=== PATIENT | female | born 1995 | race American Indian/Alaskan Native ===

== ENCOUNTER 2017-03-18 07:48 | Emergency (ER) | payer OTHER ==
[2017-03-18 08:25] LABS: Bacteria,Urine 1+ /HPF (Negative); Bilirubin,Urine NEG (Negative); Blood,Urine MOD (Negative); Ketones,Urine NEG (Negative); Leukocyte Esterase,Urine SM (Negative); Mucus,Urine 2+ /HPF; Nitrite,Urine NEG (Negative); Protein,Urine <15 mg/dL mg/dL (Negative); Urobilinogen,Urine < 2.0 mg/dL (<2.0)
[2017-03-18] MEDS ORDERED: NACL 0.9% 1000 ML 1,000 ML IV ONE ×2 (08:28→10:40)
[2017-03-18 08:34] LABS: Basophils % (Auto) 0.6 % (0.0-1.8); Eosinophils % (Auto) 1.2 % (0.0-4.3); Hemoglobin 13.4 gm/dl (10.1-14.3); Mean Corpuscular HGB Conc 32 % (30-34); Mean Corpuscular Volume 79 fl (79-97); Platelet Count 330 K/mm3 (140-440); Red Blood Count 5.32 M/mm3 (3.65-5.03); White Blood Count 9.9 K/mm3 (4.5-11.0)
[2017-03-18 08:56] LABS: Anion Gap 19 mmol/L; BUN/Creatinine Ratio 16.66; Blood Urea Nitrogen 10 mg/dL (7-17); Calcium 9.7 mg/dL (8.4-10.2); Carbon Dioxide 23 mmol/L (22-30); Chloride 104.5 mmol/L (98-107); Glucose 96 mg/dL (65-100); Potassium 4.1 mmol/L (3.6-5.0); Sodium 142 mmol/L (137-145)
[2017-03-18] MEDS ORDERED: TORADOL IV ONE (09:15)
[2017-03-18 09:19] LABS: Mean Corpuscular Hemoglobin 25 pg (28-32)
--- NOTE | 2017-03-18 09:28 | Emergency Department Report ---
ED Abdominal Pain HPI - General Chief Complaint: Abdominal Pain Stated Complaint: L FLANK PAIN/HISTORY OF KIDNEY STONES Time Seen by Provider: 03/18/17 08:52 Source: patient Mode of arrival: Ambulatory Limitations: No Limitations - History of Present Illness Initial Comments: This is a 21-year-old female well-nourished with nontoxic or ill in appearance that presents with left-sided flank pain 1 day. Patient stated she has history of kidney stones that is unrelieved with [id number] medication. Patient states has a hcc coders but due to move patient does not follow-up with a hcc coders x6 months. Patient has a history of chronic kidney stones that she is usually admitted for because patient does not excrete the kidney stones by herself. Basically last episode of severe kidney stone was in July 2016. Patient stated she was admitted that time. Patient denies any fever, chills, nausea, vomiting, abdominal pain, stiff neck, headache, chest pain, shortness of breath, blurry vision. Patient describes left-sided flank pain as aching with a level of 7 out of 10. Patient has hematuria. Denies dysuria or polyuria. Denies discharge. Denies any allergies. History of asthma and kidney stones. MD Complaint: flank pain (left) -: Gradual, days(s) (1) Radiation: none Migration to: no migration Severity: moderate Severity scale (0 -10): 7 Quality: aching Consistency: constant Improves With: nothing Worsens With: nothing Associated Symptoms: denies other symptoms. denies: nausea, vomiting, diarrhea , fever, chills, constipation, dysuria, hematemesis, hematochezia, melena, hematuria, anorexia, syncope - Related Data Previous Rx's Medication Instructions Recorded Last Taken Type Ibuprofen [Motrin] 800 mg PO Q8HR PRN #60 tablet 05/23/15 Unknown Rx Sulfamethoxazole/Trimethoprim 1 each PO BID #20 tablet 05/23/15 Unknown Rx [Bactrim DS TAB] traMADol [Ultram] 50 mg PO Q6HR PRN #20 tablet 05/23/15 Unknown Rx Ibuprofen [Motrin 600 MG tab] 600 mg PO Q8H PRN #15 tablet 03/18/17 Unknown Rx Allergies Allergy/AdvReac Type Severity Reaction Status Date / Time cat dander Allergy Itching Verified 03/18/17 10:10 dog dander Allergy Itching Verified 03/18/17 10:10 pineapple Allergy Hives Verified 03/18/17 10:10 tomato Allergy Hives Verified 03/18/17 10:10 pepper AdvReac Nausea Verified 03/18/17 10:10 ED Review of Systems ROS: Stated complaint: L FLANK PAIN/HISTORY OF KIDNEY STONES Other details as noted in HPI Constitutional: denies: chills, fever Eyes: denies: eye pain, eye discharge, vision change ENT: denies: ear pain, throat pain Respiratory: denies: cough, shortness of breath, wheezing Cardiovascular: denies: chest pain, palpitations Endocrine: no symptoms reported Gastrointestinal: denies: abdominal pain, nausea, vomiting, diarrhea, constipation, hematemesis, melena, hematochezia Genitourinary: denies: urgency, dysuria, discharge Musculoskeletal: denies: back pain, joint swelling, arthralgia Skin: denies: rash, lesions Neurological: denies: headache, weakness, paresthesias Psychiatric: denies: anxiety, depression Hematological/Lymphatic: denies: easy bleeding, easy bruising ED Past Medical Hx - Past Medical History Hx Kidney Stones: Yes Hx Asthma: Yes Additional medical history: KIDNEY infection,back problem,stomach ulcer - Surgical History Additional Surgical History: gastro surgery - Social History Smoking Status: Former Smoker Substance Use Type: None - Medications Home Medications: Home Medications Medication Instructions Recorded Confirmed Last Taken Type Ibuprofen [Motrin] 800 mg PO Q8HR PRN #60 tablet 05/23/15 Unknown Rx Sulfamethoxazole/Trimethoprim 1 each PO BID #20 tablet 05/23/15 Unknown Rx [Bactrim DS TAB] traMADol [Ultram] 50 mg PO Q6HR PRN #20 tablet 05/23/15 Unknown Rx Ibuprofen [Motrin 600 MG tab] 600 mg PO Q8H PRN #15 tablet 03/18/17 Unknown Rx ED Physical Exam - General Limitations: No Limitations General appearance: alert, in no apparent distress - Head Head exam: Present: atraumatic, normocephalic, normal inspection - Eye Eye exam: Present: normal appearance, PERRL, EOMI. Absent: scleral icterus, conjunctival injection, nystagmus, periorbital swelling, periorbital tenderness Pupils: Present: normal accommodation - ENT ENT exam: Present: normal exam, normal orophraynx, mucous membranes moist, TM's normal bilaterally, normal external ear exam - Neck Neck exam: Present: normal inspection, full ROM. Absent: tenderness, meningismus, lymphadenopathy, thyromegaly - Respiratory Respiratory exam: Present: normal lung sounds bilaterally. Absent: respiratory distress, wheezes, rales, rhonchi, stridor, chest wall tenderness, accessory muscle use, decreased breath sounds, prolonged expiratory - Cardiovascular Cardiovascular Exam: Present: regular rate, normal rhythm, normal heart sounds. Absent: bradycardia, tachycardia, irregular rhythm, systolic murmur, diastolic murmur, rubs, gallop - GI/Abdominal GI/Abdominal exam: Present: soft, normal bowel sounds. Absent: distended, tenderness, guarding, rebound, rigid, diminished bowel sounds, hyperactive bowel sounds, hypoactive bowel sounds, organomegaly, mass, bruit, pulsatile mass , hernia - Expanded GI/Abdominal Exam Expanded GI/Abdominal exam: Absent: psoas sign, obturator sign, heel tap sign, Alvarenga's sign, Rovsing's sign, tenderness at [place]bur[place]'s Point, ascites - Rectal Rectal exam: Present: deferred - Extremities Exam Extremities exam: Present: normal inspection, full ROM, normal capillary refill. Absent: tenderness, pedal edema, joint swelling, calf tenderness - Back Exam Back exam: Present: normal inspection, full ROM, tenderness, CVA tenderness (L) . Absent: CVA tenderness (R), muscle spasm, paraspinal tenderness, vertebral tenderness, rash noted - Neurological Exam Neurological exam: Present: alert, oriented X3, CN II-XII intact, normal gait - Psychiatric Psychiatric exam: Present: normal affect, normal mood. Absent: depressed, agitated - Skin Skin exam: Present: warm, dry, intact, normal color. Absent: rash ED Course Vital Signs 03/18/17 03/18/17 03/18/17 07:54 09:32 09:50 Temperature 98.1 F Pulse Rate 94 H Respiratory 20 20 22 Rate Blood Pressure 117/97 O2 Sat by Pulse 100 Oximetry 03/18/17 03/18/17 09:57 10:27 Temperature Pulse Rate Respiratory 22 18 Rate Blood Pressure O2 Sat by Pulse Oximetry - Reevaluation(s) Reevaluation #1: 03/18/17 09:28 Patient is laying in bed on right sided with stating pain. No signs of distress noted,. - Consultations Consultation #1: 03/18/17 11:12 Dr. Borden has been consulted about patient and lab/ct findings. Agrees to d/c plan of care. ED Medical Decision Making - Lab Data Result diagrams: 03/18/17 08:08 03/18/17 08:08 - Medical Decision Making Ed course: This is a 21-year-old female that presents with bilateral nephrolithiasis, nonobstructing. 1- Patient has been examiend by myself. A CT scan has been obtained and dictacted by Dr. Thacker. Impression: Bilateral nephrolithiasis with nonobstructing. Largest stone is 3mm in the inferior right kidney. Patient has been notified of CT findings. 2- Dr. Borden has been consulted about patient and agrees to d/c. 3- patient received normal saline bolus in the ED as well as Toradol and morphine. Patient stated pain has subsided to 2/10. Patient stated that girlfriend (Maria D) will drive patient home. I instructed patient not to operate heavy machinery, discharged due to possibility of drowsiness/sedation morphine in ED. patient agrees to plan of care and discharge as stated Maria D will drive the patient home. 4- patient received ibuprofen 800 mg by mouth at the time of discharge. 5. Patient was also instructed to follow-up with her primary care doctor in 3- 5 days or if symptoms worsen and unbearable return to emergency room as was possible.- 6- at time time of discharge, the patient does not seem toxic or ill in appearance. No acute signs of distress noted. Patient agrees to discharge treatment plan of care. No further questions noted by the patient. Critical care attestation.: If time is entered above; I have spent that time in minutes in the direct care of this critically ill patient, excluding procedure time. ED Disposition Clinical Impression: Nephrolithiasis Disposition: DC-01 TO HOME OR SELFCARE Is pt being admited?: No Does the pt Need Aspirin: No Condition: Stable Instructions: Kidney Stones (ED), Ibuprofen (By mouth) Additional Instructions: Follow-up with her primary care doctor in 3-5 days or if symptoms worsen/ unbearable and unable to urinate return back to emergency room as soon as possible. Take ibuprofen as prescribed as needed for pain. Prescriptions: Ibuprofen [Motrin 600 MG tab] 600 mg PO Q8H PRN #15 tablet PRN Reason: Pain Referrals: PRIMARY CARE, [Primary Care Provider] - 3-5 Days STEVIE MIRZA JR, MD [Staff Physician] - 3-5 Days [facility] [Outside] - 3-5 Days [facility] [Outside] - 3-5 Days Forms: Work/School Release Form(ED)
[2017-03-18] MEDS ORDERED: ZOFRAN IV ONE (09:54)
[2017-03-18] MEDS ORDERED: MORPHINE IV ONE (09:54)
[2017-03-18 10:28] LABS: Alanine Aminotransferase 11 units/L (7-56); Albumin 4.7 g/dL (3.9-5); Alkaline Phosphatase 74 units/L (35-129); Amylase 67 units/L (27-131); Lipase 34 units/L (13-60)
--- NOTE | 2017-03-18 10:31 | Cat Scan Report ---
CT OF THE ABDOMEN AND PELVIS WITHOUT CONTRAST HISTORY: Flank pain. TECHNIQUE: Helical CT without contrast. Sagittal and coronal reformatted images. FINDINGS: No comparison. There are multiple bilateral nonobstructing renal calyceal stones. The largest stone measures 3 mm in the inferior right kidney. No ureteral stones or hydronephrosis is appreciated. No focal renal lesion. The bladder is unremarkable. Within the limits of a noncontrast exam, the abdominal and pelvic viscera are within normal limits. The liver, biliary system, pancreas, spleen, and adrenal glands are unremarkable. The bowel loops are normal caliber and wall thickness. Normal appendix. 1 cm appendicolith is noted in the distal tip of the appendix but no inflammatory changes. The aorta is normal caliber. No ascites, bulky adenopathy or inflammatory changes. The uterus and adnexa are unremarkable. The lung bases are clear. Normal heart size. No suspicious bony lesion. IMPRESSION: Bilateral nephrolithiasis, nonobstructing.
[2017-03-18 10:32] LABS: Bilirubin,Direct < 0.2 mg/dL (0-0.2)
[2017-03-18 10:39] LABS: Albumin/Globulin Ratio 1.6 %; Total Protein 7.7 g/dL (6.3-8.2)
[2017-03-18 11:41] VITALS: BP 124/78
== END 2017-03-18 11:40 | disposition home or self-care (01) ==
LOC: ED 07:48
DX: N20.0 Calculus of kidney (principal); J45.909 Unspecified asthma, uncomplicated; Z87.891 Personal history of nicotine dependence
CPT/HCPCS: 36415; 74176; 80048; 80074; 81001; 82150; 83690; 84702; 84703; 85025; 96361; 96374; 96375; 99284; J1885; J2270; J2405; J7030

== ENCOUNTER 2017-04-11 21:50 | Emergency (ER) | payer OTHER ==
[2017-04-11 22:30] VITALS: BP 126/76
[2017-04-11 22:50] LABS: Basophils % (Auto) 0.7 % (0.0-1.8); Eosinophils % (Auto) 2.6 % (0.0-4.3); Hematocrit 42.3 % (30.3-42.9); Hemoglobin 14.1 gm/dl (10.1-14.3); Mean Corpuscular HGB Conc 33 % (30-34); Mean Corpuscular Hemoglobin 26 pg (28-32); Mean Corpuscular Volume 79 fl (79-97); Platelet Count 332 K/mm3 (140-440); Red Blood Count 5.36 M/mm3 (3.65-5.03); Red Cell Distribution Width 14.1 % (13.2-15.2); White Blood Count 8.5 K/mm3 (4.5-11.0)
[2017-04-11 23:19] LABS: Anion Gap 22 mmol/L; BUN/Creatinine Ratio 18.33; Blood Urea Nitrogen 11 mg/dL (7-17); Calcium 9.8 mg/dL (8.4-10.2); Carbon Dioxide 17 mmol/L (22-30); Chloride 104.9 mmol/L (98-107); Glucose 129 mg/dL (65-100); Potassium 4.1 mmol/L (3.6-5.0); Sodium 140 mmol/L (137-145)
[2017-04-11 23:54] LABS: Bacteria,Urine 1+ /HPF (Negative); Bilirubin,Urine NEG (Negative); Blood,Urine NEG (Negative); Ketones,Urine NEG (Negative); Leukocyte Esterase,Urine NEG (Negative); Mucus,Urine 1+ /HPF; Nitrite,Urine NEG (Negative); Protein,Urine <15 mg/dL mg/dL (Negative); Urobilinogen,Urine < 2.0 mg/dL (<2.0)
--- NOTE | 2017-04-13 14:34 | ED Elopement Review ---
ED Pt Elopement review - Results review Lab results: Laboratory Tests 04/11/17 04/11/17 04/11/17 22:32 22:33 22:33 WBC 8.5 RBC 5.36 H Hgb 14.1 Hct 42.3 MCV 79 MCH 26 L MCHC 33 RDW 14.1 Plt Count 332 Lymph % (Auto) 32.9 [place] % (Auto) 9.7 H Eos % (Auto) 2.6 Baso % (Auto) 0.7 Lymph # 2.8 [place] # 0.8 Eos # 0.2 Baso # 0.1 Seg Neutrophils % 54.1 Seg Neutrophils # 4.6 Sodium 140 Potassium 4.1 Chloride 104.9 Carbon Dioxide 17 L Anion Gap 22 BUN 11 Creatinine 0.6 L Estimated GFR > 60 BUN/Creatinine Ratio 18.33 Glucose 129 H Calcium 9.8 HCG, Qual Negative Urine Color Urine Turbidity Urine pH Ur Specific [place] Urine Protein Urine Glucose (UA) Urine Ketones Urine Blood Urine Nitrite Urine Bilirubin Urine Urobilinogen Ur Leukocyte Esterase Urine WBC (Auto) Urine RBC (Auto) U Epithel Cells (Auto) Urine Bacteria (Auto) Calcium Oxalate Crystal Urine Mucus 04/11/17 22:44 WBC RBC Hgb Hct MCV MCH MCHC RDW Plt Count Lymph % (Auto) [place] % (Auto) Eos % (Auto) Baso % (Auto) Lymph # [place] # Eos # Baso # Seg Neutrophils % Seg Neutrophils # Sodium Potassium Chloride Carbon Dioxide Anion Gap BUN Creatinine Estimated GFR BUN/Creatinine Ratio Glucose Calcium HCG, Qual Urine Color Yellow Urine Turbidity Clear Urine pH 5.0 Ur Specific [place] 1.020 Urine Protein <15 mg/dl Urine Glucose (UA) Neg Urine Ketones Neg Urine Blood Neg Urine Nitrite Neg Urine Bilirubin Neg Urine Urobilinogen < 2.0 Ur Leukocyte Esterase Neg Urine WBC (Auto) 2.0 Urine RBC (Auto) 3.0 U Epithel Cells (Auto) 7.0 Urine Bacteria (Auto) 1+ Calcium Oxalate Crystal Few Urine Mucus 1+ - Call Back decision Pt Call Back Decision: Pt to F/U with PMD
== END 2017-04-12 02:00 | disposition left against medical advice (07) ==
LOC: ED 21:50
DX: R07.9 Chest pain, unspecified (principal); R10.9 Unspecified abdominal pain; R11.2 Nausea with vomiting, unspecified; Z53.21 Procedure and treatment not carried out due to patient leaving prior to being seen by health care provider
CPT/HCPCS: 36415; 80048; 81001; 84703; 85025; 93005; 93010

== ENCOUNTER 2017-05-01 00:20 | Emergency (ER) | payer OTHER ==
[2017-05-01 03:13] LABS: Bacteria,Urine 1+ /HPF (Negative); Bilirubin,Urine NEG (Negative); Blood,Urine LG (Negative); Ketones,Urine NEG (Negative); Leukocyte Esterase,Urine TR (Negative); Mucus,Urine 3+ /HPF; Nitrite,Urine NEG (Negative); Urobilinogen,Urine < 2.0 mg/dL (<2.0)
[2017-05-01] MEDS ORDERED: TYLENOL ONE (03:58)
[2017-05-01] MEDS ORDERED: TYLENOL PO ONE ×2 (03:59→08:42)
[2017-05-01] MEDS ORDERED: TORADOL IV ONE (07:28)
[2017-05-01] MEDS ORDERED: DILAUDID IV ONE (07:28)
[2017-05-01] MEDS ORDERED: ZOFRAN IV ONE (07:28)
--- NOTE | 2017-05-01 07:29 | Emergency Department Report ---
ED General Adult HPI - General Chief complaint: BP Check / Ring removal req Stated complaint: RT BACK PAIN/BLOOD IN URINE Time Seen by Provider: 05/01/17 07:22 Source: patient, RN notes reviewed, old records reviewed Mode of arrival: Ambulatory Limitations: No Limitations - History of Present Illness Initial comments: This is a 21-year-old female. She is previously known to me. She reports her urology specialist is Dr. Miramontes. She reports a history of multiple kidney stones. Patient was seen in this emergency department on 03/18/2017 for presumed symptomatic nephrolithiasis. She had a noncontrast CT scan of the abdomen and pelvis at that time, which demonstrated bilateral nephrolithiasis with nonobstructing stones. The largest stone was found to be 3 mm in the inferior right kidney. The patient presents to the ER today with right flank pain that she feels is similar to prior episodes of nephrolithiasis. She also describes hematuria. She denies fevers, chills, chest pain, shortness of breath, irritative and obstructive urinary symptoms. There is no leg pain or leg swelling. No recent trips greater than 4 hours. No recent hospital admissions. Patient does not take control tablets. -: Gradual Location: back Radiation: flank Severity scale (0 -10): 10 Quality: aching Consistency: constant Improves with: medication Worsens with: movement Associated Symptoms: denies: confusion, chest pain, cough, diaphoresis, fever/ chills, headaches, loss of appetite, malaise, nausea/vomiting, shortness of breath, syncope, weakness - Related Data Previous Rx's Medication Instructions Recorded Last Taken Type Ibuprofen [Motrin] 800 mg PO Q8HR PRN #60 tablet 05/23/15 Unknown Rx Sulfamethoxazole/Trimethoprim 1 each PO BID #20 tablet 05/23/15 Unknown Rx [Bactrim DS TAB] traMADol [Ultram] 50 mg PO Q6HR PRN #20 tablet 05/23/15 Unknown Rx Ibuprofen [Motrin 600 MG tab] 600 mg PO Q8H PRN #15 tablet 03/18/17 Unknown Rx Ketorolac [Toradol] 10 mg PO Q6H PRN #20 tablet 05/01/17 Unknown Rx Ondansetron [Zofran Odt] 4 mg PO QID PRN #20 tab.rapdis 05/01/17 Unknown Rx Tamsulosin [Flomax] 0.4 mg PO QDAY #30 cap 05/01/17 Unknown Rx Allergies Allergy/AdvReac Type Severity Reaction Status Date / Time cat dander Allergy Itching Verified 03/18/17 10:10 dog dander Allergy Itching Verified 03/18/17 10:10 pineapple Allergy Hives Verified 03/18/17 10:10 tomato Allergy Hives Verified 03/18/17 10:10 pepper AdvReac Nausea Verified 03/18/17 10:10 ED Review of Systems ROS: Stated complaint: RT BACK PAIN/BLOOD IN URINE Other details as noted in HPI Constitutional: denies: fever Eyes: denies: vision change ENT: denies: epistaxis Respiratory: denies: cough Cardiovascular: denies: chest pain Gastrointestinal: abdominal pain Genitourinary: hematuria Musculoskeletal: back pain Skin: denies: lesions Neurological: denies: weakness Psychiatric: anxiety ED Past Medical Hx - Past Medical History Previous Medical History?: Yes Hx Kidney Stones: Yes Hx Asthma: Yes Additional medical history: KIDNEY infection,back problem,stomach ulcer - Surgical History Past Surgical History?: Yes Additional Surgical History: gastro surgery - Social History Smoking Status: Never Smoker Substance Use Type: None - Medications Home Medications: Home Medications Medication Instructions Recorded Confirmed Last Taken Type Ibuprofen [Motrin] 800 mg PO Q8HR PRN #60 tablet 05/23/15 Unknown Rx Sulfamethoxazole/Trimethoprim 1 each PO BID #20 tablet 05/23/15 Unknown Rx [Bactrim DS TAB] traMADol [Ultram] 50 mg PO Q6HR PRN #20 tablet 05/23/15 Unknown Rx Ibuprofen [Motrin 600 MG tab] 600 mg PO Q8H PRN #15 tablet 03/18/17 Unknown Rx Ketorolac [Toradol] 10 mg PO Q6H PRN #20 tablet 05/01/17 Unknown Rx Ondansetron [Zofran Odt] 4 mg PO QID PRN #20 tab.rapdis 05/01/17 Unknown Rx Tamsulosin [Flomax] 0.4 mg PO QDAY #30 cap 05/01/17 Unknown Rx ED Physical Exam - General Limitations: No Limitations General appearance: alert, in no apparent distress - Head Head exam: Present: atraumatic, normocephalic - Eye Eye exam: Present: normal appearance, EOMI. Absent: nystagmus - ENT ENT exam: Present: normal exam, normal orophraynx, mucous membranes moist, normal external ear exam - Neck Neck exam: Present: normal inspection, full ROM. Absent: tenderness, meningismus - Respiratory Respiratory exam: Present: normal lung sounds bilaterally. Absent: respiratory distress, wheezes, rales, rhonchi, stridor, chest wall tenderness, accessory muscle use, decreased breath sounds, prolonged expiratory - Cardiovascular Cardiovascular Exam: Present: regular rate, normal rhythm, normal heart sounds. Absent: bradycardia, tachycardia, irregular rhythm, systolic murmur, diastolic murmur, rubs, gallop - GI/Abdominal GI/Abdominal exam: Present: soft, normal bowel sounds. Absent: distended, tenderness, guarding, rebound, rigid, pulsatile mass - Extremities Exam Extremities exam: Present: normal inspection, full ROM, normal capillary refill. Absent: tenderness, pedal edema, joint swelling, calf tenderness - Back Exam Back exam: Present: normal inspection, full ROM. Absent: tenderness, CVA tenderness (R), CVA tenderness (L), muscle spasm, paraspinal tenderness, vertebral tenderness - Neurological Exam Neurological exam: Present: alert, oriented X3, normal gait, other (Extraocular movements intact. Tongue midline. No facial droop. Facial sensation intact to light touch in the V1, V2, V3 distribution bilaterally. 5 and 5 strength in 4 extremities.. Sensation is intact to light touch in 4 extremities.). Absent : motor sensory deficit - Psychiatric Psychiatric exam: Present: normal affect, normal mood - Skin Skin exam: Present: warm, dry, intact, normal color. Absent: rash ED Course Vital Signs 05/01/17 05/01/17 05/01/17 01:40 05:09 06:54 Temperature 97.9 F 98.8 F Pulse Rate 86 72 81 Respiratory 18 18 17 Rate Blood Pressure 120/81 144/107 Blood Pressure 113/85 [Left] O2 Sat by Pulse 99 99 100 Oximetry 05/01/17 05/01/17 05/01/17 07:35 07:40 08:52 Temperature Pulse Rate 90 Respiratory 16 16 18 Rate Blood Pressure Blood Pressure 116/81 [Left] O2 Sat by Pulse 96 Oximetry ED Medical Decision Making - Lab Data Result diagrams: 05/01/17 07:39 05/01/17 07:39 Vital Signs 05/01/17 05/01/17 05/01/17 01:40 05:09 06:54 Temperature 97.9 F 98.8 F Pulse Rate 86 72 81 Respiratory 18 18 17 Rate Blood Pressure 120/81 144/107 Blood Pressure 113/85 [Left] O2 Sat by Pulse 99 99 100 Oximetry 05/01/17 05/01/17 07:35 07:40 Temperature Pulse Rate 90 Respiratory 16 16 Rate Blood Pressure Blood Pressure 116/81 [Left] O2 Sat by Pulse 96 Oximetry Lab Results 05/01/17 05/01/17 05/01/17 Range/Units 07:39 07:39 Unknown WBC 7.6 (4.5-11.0) K/mm3 RBC 5.10 H (3.65-5.03) M/mm3 Hgb 13.4 (10.1-14.3) gm/dl Hct 39.7 (30.3-42.9) % MCV 78 L (79-97) fl MCH 26 L (28-32) pg MCHC 34 (30-34) % RDW 14.2 (13.2-15.2) % Plt Count 276 (140-440) K/mm3 Sodium 142 (137-145) mmol/L Potassium 3.8 (3.6-5.0) mmol/L Chloride 103.8 (98-107) mmol/L Carbon Dioxide 23 (22-30) mmol/L Anion Gap 19 mmol/L BUN 9 (7-17) mg/dL Creatinine 0.7 (0.7-1.2) mg/dL Estimated GFR > 60 ml/min BUN/Creatinine Ratio 12.85 % Glucose 94 (65-100) mg/dL Calcium 9.0 (8.4-10.2) mg/dL Total Bilirubin 0.50 (0.1-1.2) mg/dL AST 22 (5-40) units/L ALT 19 (7-56) units/L Alkaline Phosphatase 67 (35-129) units/L Total Protein 7.1 (6.3-8.2) g/dL Albumin 4.4 (3.9-5) g/dL Albumin/Globulin Ratio 1.6 % Lipase 35 (13-60) units/L Urine Color Yellow (Yellow) Urine Turbidity Slightly-cloudy (Clear) Urine pH 6.0 (5.0-7.0) Ur Specific [place] 1.028 (1.003-1.030) Urine Protein 30 mg/dl (Negative) mg/dL Urine Glucose (UA) Neg (Negative) mg/dL Urine Ketones Neg (Negative) mg/dL Urine Blood Lg (Negative) Urine Nitrite Neg (Negative) Urine Bilirubin Neg (Negative) Urine Urobilinogen < 2.0 (<2.0) mg/dL Ur Leukocyte Esterase Tr (Negative) Urine WBC (Auto) 6.0 (0.0-6.0) /HPF Urine RBC (Auto) 3.0 (0.0-6.0) /HPF U Epithel Cells (Auto) 11.0 (0-13.0) /HPF Urine Bacteria (Auto) 1+ (Negative) /HPF Urine Mucus 3+ /HPF Urine Yeast (Budding) Few /HPF Urine HCG, Qual Negative (Negative) - Radiology Data Radiology results: report reviewed, image reviewed Right-sided renal ultrasound demonstrates bilateral punctate nonobstructing renal calyceal stones. Otherwise, no acute disease or pathology. - Medical Decision Making Differential diagnosis: Renal colic, urinary tract infection, drug-seeking behavior Assessment and plan: 21-year-old female with reported history of renal colic. She is afebrile, with reassuring vital signs, no CVA tenderness, no right upper quadrant tenderness, and appears quite comfortable. I don't believe patient requires a repeat CT scan given her current physical exam findings and vital signs, the patient also declines a CT scan out of concern for ionizing radiation which I think is reasonable. A right-sided kidney ultrasound restraints presence of known kidney stones, and essentially appears to be unchanged when compared to her prior CAT scan. The patient was observed in the ER for a prolonged time period without clinical decompensation, and she has no active nausea, vomiting, is able to tolerate liquid feeds. The patient's information was accessed on the [place] prescription drug monitoring program, and the patient did not register. Given that she appears so comfortable at this time, I don't believe she requires narcotic prescription , and she will be discharged with nonnarcotic prescription, instructions to follow up with outpatient urology. She is also given a copy of her CAT scan and ultrasound report. No pulmonary embolus or DVT risk factors, low risk by well's criteria, perc negative Critical care attestation.: If time is entered above; I have spent that time in minutes in the direct care of this critically ill patient, excluding procedure time. ED Disposition Clinical Impression: Right flank pain Disposition: DC-01 TO HOME OR SELFCARE Is pt being admited?: No Does the pt Need Aspirin: No Condition: Stable Instructions: Renal Colic (ED) Additional Instructions: Take the medications as directed. Follow up with a primary care doctor or urology specialist within the next 10-14 days. Return to the ER right away with new pain, worsened pain, migration of pain, fevers, chills, confusion, intractable nausea or vomiting, inability to tolerate liquid feeds. Prescriptions: Ketorolac [Toradol] 10 mg PO Q6H PRN #20 tablet PRN Reason: Pain Ondansetron [Zofran Odt] 4 mg PO QID PRN #20 tab.rapdis PRN Reason: Nausea Tamsulosin [Flomax] 0.4 mg PO QDAY #30 cap Referrals: PRIMARY CAREMD [Primary Care Provider] - 3-5 Days KYLE POOL MD [Staff Physician] - 3-5 Days
[2017-05-01 08:01] VITALS: BP 116/81
[2017-05-01 08:04] LABS: Hematocrit 39.7 % (30.3-42.9); Hemoglobin 13.4 gm/dl (10.1-14.3); Mean Corpuscular HGB Conc 34 % (30-34); Mean Corpuscular Hemoglobin 26 pg (28-32); Mean Corpuscular Volume 78 fl (79-97); Platelet Count 276 K/mm3 (140-440); Red Cell Distribution Width 14.2 % (13.2-15.2); White Blood Count 7.6 K/mm3 (4.5-11.0)
--- NOTE | 2017-05-01 08:16 | Ultrasound Report ---
ULTRASOUND RENAL BILATERAL HISTORY: Right sided renal colic, flank pain. TECHNIQUE: transabdominal ultrasound with color Doppler interrogation. FINDINGS: Correlation is made with the CT abdomen pelvis without contrast dated 03/18/17. The right kidney measures 10.1 x 4.7 x 5.5cm. Right renal cortex: 1.4cm. The left kidney measures 11.7 x 5.2 x 5.9cm. Left renal cortex: 1.5cm. Scans of the kidneys show normal renal contours. There is normal central calyceal clustering and good preservation of the cortical thickness. There is no evidence of mass, cystic disease or hydronephrosis. There are several punctate echogenic foci in both kidneys consistent with tiny calyceal stones. The views of the bladder and the region of the ureters appear normal. IMPRESSION: Bilateral punctate nonobstructing renal calyceal stones.
[2017-05-01 08:17] LABS: Alanine Aminotransferase 19 units/L (7-56); Albumin 4.4 g/dL (3.9-5); Albumin/Globulin Ratio 1.6 %; Alkaline Phosphatase 67 units/L (35-129); Anion Gap 19 mmol/L; BUN/Creatinine Ratio 12.85; Blood Urea Nitrogen 9 mg/dL (7-17); Carbon Dioxide 23 mmol/L (22-30); Chloride 103.8 mmol/L (98-107); Glucose 94 mg/dL (65-100); Lipase 35 units/L (13-60); Potassium 3.8 mmol/L (3.6-5.0); Sodium 142 mmol/L (137-145); Total Protein 7.1 g/dL (6.3-8.2)
== END 2017-05-01 09:13 | disposition home or self-care (01) ==
LOC: ED 00:20
DX: R10.9 Unspecified abdominal pain (principal); J45.909 Unspecified asthma, uncomplicated; Z91.018 Allergy to other foods; Z87.442 Personal history of urinary calculi
CPT/HCPCS: 36415; 76770; 80053; 81001; 81025; 83690; 85027; 96374; 96375; 99284; J1170; J1885; J2405

== ENCOUNTER 2018-02-20 01:23 | Emergency (ER) | payer SELFPAY ==
[2018-02-20 03:32] VITALS: BP 108/74
[2018-02-20 03:59] LABS: Basophils % (Auto) 0.3 % (0.0-1.8); Eosinophils % (Auto) 0.1 % (0.0-4.3); Hematocrit 42.1 % (30.3-42.9); Hemoglobin 14.1 gm/dl (10.1-14.3); Lymphocytes # (Auto) 2.7 K/mm3 (1.2-5.4); Lymphocytes % (Auto) 16.2 % (13.4-35.0); Mean Corpuscular HGB Conc 33 % (30-34); Mean Corpuscular Hemoglobin 27 pg (28-32); Mean Corpuscular Volume 80 fl (79-97); Monocytes # (Auto) 1.2 K/mm3 (0.0-0.8); Monocytes % (Auto) 7.1 % (0.0-7.3); Platelet Count 374 K/mm3 (140-440); Red Blood Count 5.24 M/mm3 (3.65-5.03); Red Cell Distribution Width 13.7 % (13.2-15.2)
[2018-02-20 04:14] LABS: Alanine Aminotransferase 6 units/L (7-56); Albumin 4.9 g/dL (3.9-5); BUN/Creatinine Ratio 10; Blood Urea Nitrogen 7 mg/dL (7-17); Calcium 9.6 mg/dL (8.4-10.2); Hemolysis Index 2
[2018-02-20 04:42] LABS: Bilirubin,Urine NEG (Negative); Blood,Urine NEG (Negative); Color,Urine Yellow (Yellow); Mucus,Urine 3+ /HPF; Urobilinogen,Urine < 2.0 mg/dL (<2.0)
== END 2018-02-20 11:14 | disposition left against medical advice (07) ==
LOC: ED 01:23
DX: R10.9 Unspecified abdominal pain (principal); Z53.21 Procedure and treatment not carried out due to patient leaving prior to being seen by health care provider
CPT/HCPCS: 36415; 80053; 81001; 85025